=== PATIENT | male | born 1935 | race Caucasian/White ===

== ENCOUNTER 2020-01-20 16:35 | Inpatient (IN) | payer OTHER ==
[~2020-01-20] VITALS: Ht 152.4 cm; Wt 49.9 kg
[~2020-01-20 16:35] MED LIST: ATOR10TA PO; BICA50TA13 PO; CETI1TAB36 PO; FAMO20TA10 PO
[2020-01-20] MEDS ORDERED: SUCCINYLCHOLINE CHLORIDE 20 MG/ML 10ML VIAL IV ONE (16:38)
[2020-01-20] MEDS ORDERED: ETOMIDATE (2MG/ML) 20ML VIAL IV ONE (16:38)
[2020-01-20] MEDS ORDERED: MIDAZOLAM DRIP 50 mg/50mL 50 ML IV ONE (16:39)
[2020-01-20] MEDS: MIDAZOLAM DRIP 50 mg/50mL 50 ML IV SCH ×3 (16:45→20:30)
[2020-01-20] MEDS ORDERED: MIDAZOLAM DRIP 50 mg/50mL 50 ML IV SCH (17:00)
[2020-01-20] MEDS ORDERED: SODIUM CHLORIDE 0.9% 500 ML IV ONE (17:00)
[2020-01-20 17:33] LABS: Basophils # (auto) 0 10 ^3/uL (0-0.2); Basophils % (auto) 0.1 % (0.0-2.0); Eosinophils # (auto) 0 10 ^3/uL (0-0.8); Hematocrit 35.8 % (41.0-53.0); Hemoglobin 11.2 g/dL (13.5-17.5); Lymphocytes # (auto) 0.5 10 ^3/uL (0.4-5.4); Lymphocytes % (auto) 3.8 % (10.0-50.0); Mean Corpuscular Hemoglobin 24.8 pg (28.0-32.0); Mean Corpuscular Hgb Conc. 31.2 g/dL (32.0-36.0); Mean Corpuscular Volume 79.6 fL (80.0-100.0); Monocytes # (auto) 0.6 10 ^3/uL (0-1.3); Monocytes % (auto) 4.6 % (0.0-12.0); Neutrophils # (auto) 12.5 10 ^3/uL (1.6-8.6); Neutrophils % (auto) 91.5 % (37.0-80.0); Platelet Count (auto) 260 10^3/uL (140-450); Red Cell Distribution Width 14.6 % (11.8-14.3); White Blood Cell 13.7 10^3/uL (4.4-10.8)
[2020-01-20 17:50] LABS: Chloride 117 mmol/L (98-107); Potassium 4.7 mmol/L (3.5-5.1); Sodium 143 mmol/L (136-145)
[2020-01-20 17:51] LABS: INR 1.08 (0.9-1.15); Partial Thromboplastin Time 28.3 sec (23.0-31.2)
[2020-01-20 17:56] LABS: Alanine Aminotransferase 24 U/L (16-61); Albumin 2.5 g/dL (3.4-5.0); Alkaline Phosphatase 80 U/L (45-117); Anion Gap 3 (5-15); Aspartate Aminotransferase 17 U/L (15-37); BUN/Creatinine Ratio 21.2; Bilirubin, Total 0.5 mg/dL (0.2-1.0); Blood Urea Nitrogen 35 mg/dL (7-18); Calcium 8.3 mg/dL (8.5-10.1); Carbon Dioxide 23 mmol/L (21-32); GFR African American 51 mL/min; GFR Non-African American 42 mL/min; Glucose 192 mg/dL (74-106); Magnesium 2.2 mg/dL (1.6-2.6); Total Protein 6.9 g/dL (6.4-8.2)
[2020-01-20 18:10] VITALS: BP 93/48
[2020-01-20] MEDS ORDERED: NITROGLYCERIN 0.4 MG SL TAB SL PRN ×2 (18:15→18:30)
[2020-01-20] MEDS ORDERED: MORPHINE SULF INJ 2 MG/ML SYRINGE 1ML IV PRN ×3 (18:15→18:30)
[2020-01-20] MEDS ORDERED: ALBUTEROL SULF HFA 90MCG INH 200DOSE IN PRN (18:30)
[2020-01-20] MEDS ORDERED: HYDROcodone-ACET 5/325MG TAB PO PRN (18:30)
[2020-01-20] MEDS ORDERED: PIPERACILLIN-TAZOB 3.375GM 100 ML IV ONE (18:30)
[2020-01-20] MEDS ORDERED: VANCOMYCIN PER PHARMACY 0 MG IV SCH (18:30)
[2020-01-20] MEDS ORDERED: ENOXAPARIN SOD 60 MG/0.6 ML SYRINGE SC ONE (18:30)
[2020-01-20] MEDS ORDERED: ONDANSETRON HCL 4 MG/2 ML VIAL IV PRN (18:30)
[2020-01-20] MEDS ORDERED: SODIUM CHLORIDE 0.9% 1,000 ML IV ONE (18:30)
[2020-01-20] MEDS ORDERED: ACETAMINOPHEN 500 MG TAB PO PRN (18:30)
[2020-01-20] MEDS ORDERED: ALUM & MAG HYDROX-SIMETH LIQ(MAALOX) 30 ML PO PRN (18:30)
[2020-01-20] MEDS ORDERED: DOCUSATE SOD 100 MG CAP PO PRN (18:30)
[2020-01-20] MEDS ORDERED: LORazepam 0.5 MG TAB PO PRN (18:30)
[2020-01-20] MEDS ORDERED: LACTATED RINGER'S 1,000 ML IV ONE (18:30)
[2020-01-20] MEDS ORDERED: ALBUMIN 25% 100 ML IV ONE (18:30)
[2020-01-20] MEDS: DexAMETHasone SOD PHOS 10MG/1ML VIAL INJ IV SCH (18:47)
[2020-01-20] MEDS: CHOLECALCIFEROL (VITD3) 2,000 UNIT CAP PO SCH (18:47)
[2020-01-20] MEDS: ASCORBIC ACID 1,000 MG TAB PO SCH (18:47)
[2020-01-20] MEDS: ZINC SULFATE 220mg CAP or TAB PO SCH (18:48)
[2020-01-20 18:49] LABS: Alcohol, Urine < 3.0 mg/dL (0-10); Amphetamine Screen, Urine NEGATIVE (NEGATIVE); Barbiturate Scree,Urine NEGATIVE (NEGATIVE); Benzodiazephine Screen, Urine NEGATIVE (NEGATIVE); Cannabinoid Screen, Urine NEGATIVE (NEGATIVE); Cocaine Screen, Urine NEGATIVE (NEGATIVE); Opiate Scree,Urine POSITIVE (NEGATIVE); Phencyclidine Screen, Urine NEGATIVE (NEGATIVE)
[2020-01-20 18:50] LABS: Urine Amorphous Crystal FEW /hpf (None Seen); Urine Bacteria FEW /hpf (None Seen); Urine Blood Negative /uL (Negative); Urine Mucus FEW (None Seen); Urine Specific Gravity 1.025 (1.001-1.035); Urine WBC 1 /hpf (0 - 3)
[2020-01-20] MEDS ORDERED: LACTULOSE 20Gm/30ML SOLN PO PRN (20:00)
[2020-01-20] MEDS ORDERED: VANCOMYCIN 750mg/250ml 250 ML IV ONE (20:00)
[2020-01-20] MEDS ORDERED: ATORVASTATIN 20 MG TAB PO SCH (22:00)
[2020-01-20] MEDS ORDERED: BUDESONIDE (INHALATION) 180 MCG IH IN SCH (22:00)
[2020-01-20 22:05] VITALS: BP 98/51
[2020-01-20 22:59] LABS: Cholesterol 80 mg/dL (< 200); HDL Cholesterol 45 mg/dL (40-59); LDL Cholesterol 26 mg/dL (< 100); Triglycerides 42 mg/dL (< 150)
[2020-01-20 23:06] LABS: Lactic Acid w/Reflex 2.1 mmol/L (0.4-2.0)
[2020-01-21 02:25] VITALS: BP 89/51
[2020-01-21] MEDS ORDERED: ALBUMIN 5% 250 ML IV ONE (03:15)
[2020-01-21 05:52] VITALS: BP 88/49
[2020-01-21] MEDS: PIPERACILLIN-TAZOB 3.375GM 100 ML IV SCH ×3 (06:00→11:50)
[2020-01-21 07:39] LABS: Basophils # (auto) 0 10 ^3/uL (0-0.2); Eosinophils # (auto) 0 10 ^3/uL (0-0.8); Hemoglobin 9.6 g/dL (13.5-17.5); Lymphocytes # (auto) 0.7 10 ^3/uL (0.4-5.4); Monocytes # (auto) 0.4 10 ^3/uL (0-1.3); Neutrophils # (auto) 10.9 10 ^3/uL (1.6-8.6)
[2020-01-21 07:43] LABS: Hematocrit 29.8 % (41.0-53.0); Lymphocytes % (auto) 5.7 % (10.0-50.0); Mean Corpuscular Hemoglobin 25.8 pg (28.0-32.0); Mean Corpuscular Hgb Conc. 32.3 g/dL (32.0-36.0); Mean Corpuscular Volume 79.8 fL (80.0-100.0); Monocytes % (auto) 3.2 % (0.0-12.0); Neutrophils % (auto) 91.1 % (37.0-80.0); Platelet Count (auto) 188 10^3/uL (140-450); Red Blood Cells 3.73 10^6/uL (4.5-5.90); Red Cell Distribution Width 14.7 % (11.8-14.3)
[2020-01-21 08:06] LABS: Potassium 4.9 mmol/L (3.5-5.1)
[2020-01-21 08:09] LABS: Albumin 2.8 g/dL (3.4-5.0); BUN/Creatinine Ratio 24.4; Calcium 8.3 mg/dL (8.5-10.1)
[2020-01-21 08:13] LABS: Bilirubin, Total 0.9 mg/dL (0.2-1.0); Total Protein 6.5 g/dL (6.4-8.2)
[2020-01-21 08:53] VITALS: BP 90/48
[2020-01-21] MEDS ORDERED: ATOR20TA50 PO (09:44)
[2020-01-21] MEDS ORDERED: OMEP-260 PO (09:44)
[2020-01-21] MEDS ORDERED: QUET25TA46 PO (09:54)
[2020-01-21] MEDS ORDERED: DOCU100T7 PO (09:54)
[2020-01-21] MEDS ORDERED: ASCO500T11 PO (09:54)
[2020-01-21] MEDS ORDERED: PROM2SYP2 PO (09:54)
[2020-01-21] MEDS ORDERED: MULT-1058 PO (09:54)
[2020-01-21] MEDS ORDERED: PRED20TA2 PO (09:54)
[2020-01-21] MEDS ORDERED: LORA0.5T20 PO (09:54)
[2020-01-21] MEDS: ASCORBIC ACID 1,000 MG TAB PO SCH (10:00)
[2020-01-21] MEDS ORDERED: ASPirin 81 mg TAB PO SCH (10:00)
[2020-01-21] MEDS: CHOLECALCIFEROL (VITD3) 2,000 UNIT CAP PO SCH (10:00)
[2020-01-21] MEDS: DexAMETHasone SOD PHOS 10MG/1ML VIAL INJ IV SCH (10:06)
[2020-01-21] MEDS: ZINC SULFATE 220mg CAP or TAB PO SCH (10:07)
[2020-01-21] MEDS ORDERED: MIDAZOLAM HCL 1MG/1ML-2 ML VIAL ONE (15:48)
[2020-01-21] MEDS ORDERED: VANCOMYCIN 500 MG in D5W 5% 100 ML IV SCH (16:00)
[2020-01-21] MEDS ORDERED: ENOXAPARIN SOD 60 MG/0.6 ML SYRINGE SC SCH (18:00)
== END 2020-01-21 16:04 | DRG 208 ==
LOC: EDUNIT# 16:35 → EDBD 16:35 → ER 16:35 → TELE 18:31
PROVIDERS: ADMIT Hospitalist; ATTEND Hospitalist
PROC: 5A1935Z Respiratory Ventilation, Less than 24 Consecutive Hours (ICD-10-PCS; principal; 2020-01-20)
PROC: 0BH17EZ Insertion of Endotracheal Airway into Trachea, Via Natural or Artificial Opening (ICD-10-PCS; 2020-01-20)
PROC: 06HM33Z Insertion of Infusion Device into Right Femoral Vein, Percutaneous Approach (ICD-10-PCS; 2020-01-20)
DX: U07.1 COVID-19 (principal); J96.21 Acute and chronic respiratory failure with hypoxia; J12.89 Other viral pneumonia; E43 Unspecified severe protein-calorie malnutrition; R53.2 Functional quadriplegia; G92 Toxic encephalopathy; J44.1 Chronic obstructive pulmonary disease with (acute) exacerbation; I13.0 Hypertensive heart and chronic kidney disease with heart failure and stage 1 through stage 4 chronic kidney disease, or unspecified chronic kidney disease; N17.9 Acute kidney failure, unspecified; F11.20 Opioid dependence, uncomplicated; J44.0 Chronic obstructive pulmonary disease with (acute) lower respiratory infection; R62.7 Adult failure to thrive; K21.9 Gastro-esophageal reflux disease without esophagitis; C61 Malignant neoplasm of prostate; G89.4 Chronic pain syndrome; D64.9 Anemia, unspecified; K59.09 Other constipation; F32.9 Major depressive disorder, single episode, unspecified; E11.22 Type 2 diabetes mellitus with diabetic chronic kidney disease; E78.5 Hyperlipidemia, unspecified; Z66 Do not resuscitate; F02.80 Dementia in other diseases classified elsewhere, unspecified severity, without behavioral disturbance, psychotic disturbance, mood disturbance, and anxiety; G30.9 Alzheimer's disease, unspecified; M54.5 Low back pain; I50.9 Heart failure, unspecified; N18.9 Chronic kidney disease, unspecified; Z51.5 Encounter for palliative care; Z79.4 Long term (current) use of insulin
CPT/HCPCS: 36415; 36600; 70450; 71045; 80053; 80061; 80307; 80320; 81001; 82728; 82805; 83036; 83605; 83615; 83735; 84443; 84484; 85025; 85379; 85610; 85730; 86141; 87040; 87070; 87077; 87086; 87186; 87205; 87426; 94003; 99291; G0378; J0330; J1100; J2250; J2543; J7060; P9047